=== PATIENT | female | born 1985 | race American Indian/Alaskan Native ===

== ENCOUNTER 2017-08-16 19:08 | Emergency (ER) | payer MEDICAID ==
--- NOTE | 2017-08-16 20:32 | ED PDOC ---
Arrival/HPI - General Chief Complaint: Anxiety Time Seen by Provider: 08/16/17 20:21 Historian: Patient - History of Present Illness Narrative History of Present Illness (Text): 08/16/17 22:27 Pt is a 31 yo female with PMH of HTN and anxiety, BIBA for chest tightness and uncontrolled anxiety x1 day. Pt says she has Xanax pills however she worries that given her family history of cardiovascular disease, the chest tightness may be more than anxiety. Pt denies chest pain and shortness of breath, nausea, vomiting, diarrhea, headache or syncope. Reports that although she has Xanax, she does not take it as directed for fear of becoming dependant on it. States she is an unemployed single mom of 2 children and cares for her mother as well. Time/Duration: 24 hours Symptom Onset: Gradual Symptom Course: Improving Quality: Pressure Severity Level: Mild Activities at Onset: Rest Context: Sitting, Exertion, Home Past Medical History - Provider Review Nursing Documentation Reviewed: Yes - Travel History Have you recently traveled outside [place] w/in the past 3 mons?: No - Infectious Disease Hx of Infectious Diseases: None - Tetanus Immunization Tetanus Immunization: Unknown - Reproductive Currently : No - Cardiac Hx Hypertension: Yes (Borderline) - Pulmonary Hx Asthma: Yes - Psychiatric Hx Anxiety: Yes Hx Depression: Yes Family/Social History - Physician Review Nursing Documentation Reviewed: Yes Family/Social History: Hypertension, CAD/GA Smoking Status: Unknown If Ever Smoked Hx Alcohol Use: No Frequency of alcohol use: Socially Hx Substance Use: No Allergies/Home Meds Allergies/Adverse Reactions: Allergies No Known Allergies Allergy (Verified 08/16/17 22:26) Review of Systems - Review of Systems Constitutional: Normal Eyes: Normal ENT: Normal Respiratory: Normal Cardiovascular: Palpitations Gastrointestinal: Normal Genitourinary Female: Normal Musculoskeletal: Normal Skin: Normal Neurological: Normal Endocrine: Normal Hemo/Lymphatic: Normal Psychiatric: Normal Physical Exam Vital Signs Reviewed: Yes Vital Signs Temp Pulse Resp BP Pulse Ox 08/17/17 01:16 98.9 F 86 18 128/84 99 08/16/17 21:20 98.6 F 95 H 18 126/83 99 Temperature: Afebrile Blood Pressure: Normal Pulse: Regular Respiratory Rate: Normal Appearance: Positive for: Well-Appearing, Non-Toxic, Comfortable Pain Distress: None Mental Status: Positive for: Alert and Oriented X 3 - Systems Exam Head: Present: Atraumatic, Normocephalic Pupils: Present: PERRL Extroacular Muscles: Present: EOMI Conjunctiva: Present: Normal Mouth: Present: Moist Mucous Membranes Neck: Present: Normal Range of Motion Respiratory/Chest: Present: Clear to Auscultation, Good Air Exchange. No: Respiratory Distress, Accessory Muscle Use Cardiovascular: Present: Regular Rate and Rhythm, Normal S1, S2. No: Murmurs Abdomen: Present: Normal Bowel Sounds. No: Tenderness, Distention, Peritoneal Signs Back: Present: Normal Inspection Upper Extremity: Present: Normal Inspection. No: Cyanosis, Edema Lower Extremity: Present: Normal Inspection. No: Edema Neurological: Present: GCS=15, CN II-XII Intact, Speech Normal Skin: Present: Warm, Dry, Normal Color. No: Rashes Psychiatric: Present: Alert, Oriented x 3, Normal Insight, Normal Concentration Medical Decision Making ED Course and Treatment: 08/16/17 22:34 Impression Pt is a 31 yo female with PMH of HTN and anxiety, BIBA for chest tightness and uncontrolled anxiety x1 day. Physical exam is benign Plan EKG Assess and Dispo home Progress Note ECG reveals NSR No further management required at this time; advised pt to f/u with PMD VSS and pt ambulated well out of ER - EKG Interpretation Interpreted by ED Physician: Yes (NSR Rate 86) Disposition/Present on Arrival - Present on Arrival Any Indicators Present on Arrival: No History of DVT/PE: No History of Uncontrolled Diabetes: No Urinary Catheter: No History of Decub. Ulcer: No - Disposition Have Diagnosis and Disposition been Completed?: Yes Diagnosis: Anxiety Disposition: HOME/ ROUTINE Disposition Time: 01:10 Patient Plan: Discharge Condition: GOOD Discharge Instructions (ExitCare): Anxiety (ED) Additional Instructions: Deajane Mello, All labs and assessment of your heart reveal no complications at this time. We recommend that you follow up with your Primary Care Doctor so that you can discuss treating your anxiety and wellness visits. Continue to take your prescribed medication as directed. If you experience any chest pain or shortness of breath or feel faint, return to the ER immediately for evaluation All the best! Referrals: Postling Kallie Req, [Non-Staff] - Follow up with primary Forms: [employer] (Thai)
[2017-08-16 21:19] VITALS: BMI 43.4
[2017-08-16 21:27] VITALS: RESP 18; O2SAT 99
[2017-08-17 01:17] VITALS: BP 128/84; PULSE 86; TEMP 98.9
--- NOTE | 2017-08-17 21:35 | CARD ---
APPROVED REPORT EKG Measurement Heart [id number] <Conclusion> Normal sinus rhythm Normal ECG
== END 2017-08-17 01:16 | disposition home or self-care (01) ==
LOC: ED 19:08
DX: F41.9 Anxiety disorder, unspecified (principal); I10 Essential (primary) hypertension

== ENCOUNTER 2017-11-19 09:33 | Emergency (ER) | payer MEDICAID ==
[2017-11-19 09:33] VITALS: BMI 43.4
[2017-11-19 09:49] VITALS: TEMP 97.6
--- NOTE | 2017-11-19 10:37 | RAD ---
PROCEDURE: Left Wrist Radiographs. HISTORY: wrist pain COMPARISON: None. FINDINGS: BONES: Normal. No fracture. JOINTS: There is some joint space narrowing and irregularity of the articular surface between the lunate and triquetrum. SOFT TISSUES: Normal. OTHER FINDINGS: None. IMPRESSION: There is some joint space narrowing and irregularity of the articular surface between the lunate and triquetrum.
--- NOTE | 2017-11-19 10:42 | ED PDOC ---
Arrival/HPI - General Chief Complaint: Upper Extremity Problem/Injury Time Seen by Provider: 11/19/17 09:52 Historian: Patient - History of Present Illness Narrative History of Present Illness (Text): 11/19/17 10:39 31yo female with Past medical hiof HIV, hypertension who present with complaint of right wrist pain. States she was diagnosed with Carpal tunnel syndrome as a child, but the pain has been worse recently with swelling. States she took Ibuprofen 600mg last night without relieve. Denies trauma, fever, redness, focal weakness, paresthesia. Past Medical History - Provider Review Nursing Documentation Reviewed: Yes - Infectious Disease Hx of Infectious Diseases: None - Tetanus Immunization Tetanus Immunization: Unknown - Reproductive Menopause: No - Cardiac Hx Hypertension: Yes (Borderline) - Pulmonary Hx Asthma: Yes - Hematological/Oncological Other/Comment: HIV - Psychiatric Hx Anxiety: Yes Hx Depression: Yes Hx Substance Use: No - Surgical History Other/Comment: c section - Anesthesia Hx Anesthesia: No Hx Anesthesia Reactions: No Hx Malignant Hyperthermia: No Family/Social History - Physician Review Nursing Documentation Reviewed: Yes Family/Social History: Unknown Family HX Smoking Status: Unknown If Ever Smoked Hx Alcohol Use: No Hx Substance Use: No Allergies/Home Meds Allergies/Adverse Reactions: Allergies No Known Allergies Allergy (Verified 08/16/17 22:26) Review of Systems - Physician Review All systems were reviewed & negative as marked: Yes - Review of Systems Constitutional: Normal Eyes: Normal ENT: Normal Respiratory: Normal Cardiovascular: Normal Gastrointestinal: Normal Genitourinary Female: Normal Musculoskeletal: Arthralgias (Right wrist) Skin: Normal Neurological: Normal Endocrine: Normal Hemo/Lymphatic: Normal Psychiatric: Normal Physical Exam Vital Signs Reviewed: Yes Vital Signs Temp Pulse Resp BP Pulse Ox 11/19/17 09:45 97.6 F 96 H 16 123/88 97 Temperature: Afebrile Blood Pressure: Normal Pulse: Regular Respiratory Rate: Normal Appearance: Positive for: Well-Appearing, Non-Toxic, Comfortable Pain Distress: None Mental Status: Positive for: Alert and Oriented X 3 - Systems Exam Head: Present: Atraumatic, Normocephalic Pupils: Present: PERRL Extroacular Muscles: Present: EOMI Conjunctiva: Present: Normal Mouth: Present: Moist Mucous Membranes Neck: Present: Normal Range of Motion Respiratory/Chest: Present: Clear to Auscultation, Good Air Exchange. No: Respiratory Distress, Accessory Muscle Use Cardiovascular: Present: Regular Rate and Rhythm, Normal S1, S2. No: Murmurs Abdomen: No: Tenderness, Distention, Peritoneal Signs Back: Present: Normal Inspection Upper Extremity: Present: Normal ROM (With pain), NORMAL PULSES, Tenderness ( Right diffuse wrist), Swelling (Mild over the right wrist), Neurovascularly Intact, Capillary Refill < 2s. No: Cyanosis, Edema, Erythema, Temperature Abnormalties, Deformity Lower Extremity: Present: Normal Inspection. No: Edema Neurological: Present: GCS=15, CN II-XII Intact, Speech Normal Skin: Present: Warm, Dry, Normal Color. No: Rashes Psychiatric: Present: Alert, Oriented x 3, Normal Insight, Normal Concentration Medical Decision Making ED Course and Treatment: 11/19/17 10:42 right wrist xray - Joint narrowing between the lunate and capitate. Result was DW the patient. Wrist brace placed. Naprosyn rx given. Referred to her PMD. - RAD Interpretation Radiology Orders: 11/19/17 09:52 WRIST, LEFT 3 VIEWS [RAD] Stat - Medication Orders Current Medication Orders: Discontinued Medications Ketorolac Tromethamine (Toradol) 60 mg IM STAT STA Stop: 11/19/17 09:55 Last Admin: 11/19/17 10:10 Dose: 60 mg [facility] Pain Assessment Document 11/19/17 10:10 NATANAEL (Rec: 11/19/17 10:11 [id number]) Pain Reassessment Is this a pain reassessment? No Sleep Is patient sleeping during reassessment? No Presence of Pain Presence of Pain Yes Pain Scale Used Pain Scale Used Numeric Description Description Intermittent Intensity of Pain at present 10 IM Administration Charges Document 11/19/17 10:10 NATANAEL (Rec: 11/19/17 10:11 [id number]) Charges for Administration # of IM Administrations 1 Disposition/Present on Arrival - Present on Arrival Any Indicators Present on Arrival: No History of DVT/PE: No History of Uncontrolled Diabetes: No Urinary Catheter: No History of Decub. Ulcer: No History Surgical Site Infection Following: None - Disposition Have Diagnosis and Disposition been Completed?: Yes Diagnosis: Wrist pain Disposition: HOME/ ROUTINE Disposition Time: 10:50 Patient Plan: Discharge Condition: STABLE Discharge Instructions (ExitCare): Carpal Tunnel Exercises, Muscle and Bone Pain (DC) Additional Instructions: Follow up with your doctor/Orthopedist Return to Emergency department for any new symptoms Prescriptions: Naproxen [Naprosyn] 500 mg PO BID #20 tablet Referrals: Tootie Mcgill MD [Primary Care Provider] - Follow up with primary Sukhwinder Cruz MD [Staff Provider] - Follow up with primary Forms: [employer] (Mongolian)
[2017-11-19 11:24] VITALS: BP 130/71; PULSE 88; RESP 18; O2SAT 99
== END 2017-11-19 11:24 | disposition home or self-care (01) ==
LOC: ED 09:33
DX: M25.531 Pain in right wrist (principal); I10 Essential (primary) hypertension; Z21 Asymptomatic human immunodeficiency virus [HIV] infection status
CPT/HCPCS: 73110; 96372; 99282; J1885

== ENCOUNTER 2018-03-29 00:51 | Emergency (ER) | payer MEDICAID ==
[2018-03-29 01:00] VITALS: BMI 42.5
[2018-03-29] MEDS ORDERED: Naproxen 550 mg Tab PO STA (01:00)
[2018-03-29 01:01] VITALS: O2SAT 100
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
[2018-03-29 05:15] VITALS: BP 122/63; PULSE 65; RESP 18; TEMP 98
--- NOTE | 2018-03-29 12:39 | RAD ---
Date of service: 03/29/2018 PROCEDURE: Left Foot Radiographs. HISTORY: pain COMPARISON: None. FINDINGS: BONES: Normal. No fracture. JOINTS: Normal. SOFT TISSUES: Normal. OTHER FINDINGS: None. IMPRESSION: Normal left foot radiographs.
--- NOTE | 2018-03-29 12:39 | RAD ---
Date of service: 03/29/2018 PROCEDURE: Left Ankle Radiographs. HISTORY: pain COMPARISON: None FINDINGS: BONES: Normal. No fracture. JOINTS: Normal. No osteoarthritis. Ankle mortise maintained. Talar dome intact SOFT TISSUES: Normal. OTHER FINDINGS: None. IMPRESSION: Normal left ankle radiographs.
--- NOTE | 2018-03-29 12:40 | RAD ---
Date of service: 03/29/2018 PROCEDURE: Left Femur Radiographs. HISTORY: pain COMPARISON: None. TECHNIQUE: AP and Lateral Radiographs of the left femur. FINDINGS: FEMUR: Normal. No fracture. SOFT TISSUES: Normal. OTHER FINDINGS: None. IMPRESSION: Unremarkable radiographs of the left femur.
== END 2018-03-29 03:15 | disposition home or self-care (01) ==
LOC: ED 00:51
DX: S93.402A Sprain of unspecified ligament of left ankle, initial encounter (principal); S76.912A Strain of unspecified muscles, fascia and tendons at thigh level, left thigh, initial encounter; Y04.0XXA Assault by unarmed brawl or fight, initial encounter; I10 Essential (primary) hypertension